=== PATIENT | male | born 1950 | race Caucasian/White ===

== ENCOUNTER 2016-11-09 07:56 | Day surgery (SDC) | payer OTHER ==
[~2016-11-09] VITALS: Ht 170.2 cm; Wt 77.1 kg
[~2016-11-09 07:56] MED LIST: ASPIR-LOW81 MG PO; ATORVASTATIN CA20 MG PO; COQ-10100 MG PO; GABAPENTIN300 MG PO; GLIMEPIRIDE2 MG PO; METFORMIN HCL1000 MG PO; VITAMIN B-122500 MCG SL; VITAMIN D31000 UNI2 PO
[2016-11-09 08:55] LABS: POINT-OF-CARE METER ID UU13113696
== END 2016-11-09 15:33 | disposition home or self-care (01) ==
LOC: CATH 07:56
PROVIDERS: Internal Medicine Interventional Cardiology
DX: I25.10 Atherosclerotic heart disease of native coronary artery without angina pectoris (principal); I34.0 Nonrheumatic mitral (valve) insufficiency; I10 Essential (primary) hypertension; E78.2 Mixed hyperlipidemia; E11.40 Type 2 diabetes mellitus with diabetic neuropathy, unspecified; Z85.46 Personal history of malignant neoplasm of prostate; Z79.84 Long term (current) use of oral hypoglycemic drugs; Z79.82 Long term (current) use of aspirin; Z95.5 Presence of coronary angioplasty implant and graft
CPT/HCPCS: 82948; C1769; C1887; J1644; J2250; J3010